=== PATIENT | male | born 1965 | race Caucasian/White ===

== ENCOUNTER 2016-09-11 14:31 | Emergency (ER) | payer BC ==
[~2016-09-11] VITALS: Ht 182.9 cm; Wt 98.8 kg
[2016-09-11 15:05] VITALS: TEMP 37.8
[2016-09-11] MEDS ORDERED: SODIUM CHLORIDE 0.9% 1000ML 1,000 ML IV STA (15:37)
[2016-09-11] MEDS ORDERED: LEVO125T72 PO (15:56)
[2016-09-11] MEDS ORDERED: PHEN1MIS16 PO (15:56)
[2016-09-11 16:02] VITALS: O2SAT 99; Ht 182.9 cm; Wt 98.8 kg
--- NOTE | 2016-09-11 16:03 | DIAGNOSTIC IMAGING REPORT ---
SINGLE VIEW CHEST CLINICAL HISTORY: Generalized weakness. FINDINGS: 2 AP, portable, upright chest radiographs are compared to study dated 1211. The cardiomediastinal silhouette is unremarkable. Tiny calcified granulomas are suspected. There is minimal bibasilar atelectasis. No airspace consolidation, large pleural effusion, or pneumothorax is seen. The bony thorax is grossly intact. Surgical clips are noted at the esophageal hiatus. IMPRESSION: No acute cardiopulmonary abnormality. Electronically signed by: Alvino Corley M.D. 09/11/2016 4:02 PM Dictated Date/Time: 09/11/2016 4:00 PM
[2016-09-11 16:07] LABS: BASO % 0.2 %; BASO ABS # 0.01 K/uL (0-0.2); COMPLETE YES; EOS % 0.2 %; HEMATOCRIT 46.7 % (42-52); IG% 0.2 %; LYMPH % 12.7 %; LYMPH ABS # 0.56 K/uL (1.2-3.4); MEAN CELL VOLUME 84.9 fL (80-100); MEAN CORPUSCULAR HEMOGLOBIN 30.5 pg (25-34); MEAN PLATELET VOLUME 10.2 fL (7.4-10.4); MONO % 12.3 %; NEUT % 74.4 %; PLATELET COUNT 157 K/uL (130-400)
[2016-09-11 16:17] LABS: PARTIAL THROMBOPLASTIN RATIO 1.2; PROTHROMBIN TIME (PATIENT) 10.8 SECONDS (9.0-12.0)
[2016-09-11] MEDS ORDERED: ONDANSETRON 8 MG/54 ML D5W IV STA (16:18)
[2016-09-11] MEDS ORDERED: ACETAMINOPHEN 500 MG TAB PO STA (16:18)
[2016-09-11 16:30] LABS: ALT/SGPT 41 U/L (12-78); AST/SGOT 19 U/L (15-37); BLOOD UREA NITROGEN 14 mg/dl (7-18); BUN/CREATININE RATIO 12.6 (10-20); CALCIUM 8.4 mg/dl (8.5-10.1); CARBON DIOXIDE 27 mmol/L (21-32); CHLORIDE 103 mmol/L (98-107); GLUCOSE 116 mg/dl (70-99); MAGNESIUM 2.1 mg/dl (1.8-2.4); POTASSIUM 3.7 mmol/L (3.5-5.1); SODIUM 138 mmol/L (136-145)
[2016-09-11 16:41] LABS: ALKALINE PHOSPHATASE 66 U/L (45-117)
[2016-09-11 17:28] LABS: URINE APPEARANCE CLEAR (CLEAR); URINE BILIRUBIN NEG (NEG); URINE COLOR YELLOW; URINE NITRITE NEG (NEG); URINE PH 5.5 (4.5-7.5); URINE SPECIFIC GRAVITY 1.013 (1.000-1.030); UROBILINOGEN NEG (NEG)
[2016-09-11 17:29] LABS: MANUAL MICROSCOPIC REQUIRED? NO; REVIEW REQ? NO
[2016-09-11 18:40] VITALS: BP 151/95; PULSE 87; O2SAT 95
[2016-09-11] MEDS ORDERED: ALBUTEROL HFA 8 GM INHALER INH ONE (18:45)
[2016-09-11] MEDS ORDERED: HYCODAN 60ML BOTTLE HOMEPACK PO ONE (18:45)
--- NOTE | 2016-09-12 00:04 | EMERGENCY ROOM VISIT NOTE ---
History Report prepared by Figueroa: José Luis Hilario Under the Supervision of: Dr. Rell Fair M.D. First contact with patient: 15:37 Chief Complaint: FLU LIKE SX Stated Complaint: FLU LIKE SX-BODY ACHES, FEVER, CHILLS, EXHAUSTED History of Present Illness The patient is a 51 year old male who presents to the Emergency Room with complaints of constant worsening flu symptoms for the past five days. The patient states that he has been having body aches, exhaustions, and he has been having fevers and chills. He states that he was only out of bed for 15 minutes four days ago due to the exhaustion. He states that three days ago he developed a cough the was unproductive, but he had chest pain due to the cough. He states that last night he vomited last night, and he has been nauseated, and he states that he had diarrhea once today. He states that he had some chicken noodle soup today, however it was difficult to eat. Pt denies LOC, headache, diaphoresis, visual changes, neck pain, breathing difficulties, abdominal pain, back pain, melena, hematochezia, urinary symptoms, numbness, weakness, lymphadenopathy, rash, or other complaints. Source of History: patient Onset: five days ago Position: other (global) Quality: other (flu like symptoms) Timing: constant, worsening Associated Symptoms: + chest pain, + chills, + cough, + diarrhea, + fevers, + nausea, + vomiting Note: Associated symptoms: exhaustion and body aches Review of Systems See HPI for pertinent positives and negatives. A total of ten systems were reviewed and were otherwise negative. Past Medical & Surgical Surgical Problems: (1) H/O abdominal surgery Social History Smoking Status: Never Smoker Marital Status: Housing Status: lives with family Occupation Status: employed Current/Historical Medications Scheduled Levothyroxine Sodium (Synthroid), 125 MCG PO DAILY Scheduled PRN Ljhhhjaqsriot-Jpvfgxmwom-Jnlbc (Vicks Dayquil/Nyquil Cold), 1 DOSE PO UD PRN for Cold Symptoms Allergies Coded Allergies: No Known Allergies (Verified , 04/11/04) Physical Exam Vital Signs Date Time Temp Pulse Resp B/P Pulse Ox O2 Delivery O2 Flow Rate FiO2 09/11/16 18:40 87 151/95 95 Room Air 09/11/16 17:45 86 18 148/96 97 Room Air 09/11/16 16:40 89 09/11/16 16:03 92 18 151/98 98 Room Air 09/11/16 16:02 99 Room Air 09/11/16 15:05 37.8 80 16 130/93 99 Room Air Physical Exam GENERAL: Awake, alert, mildly ill appearing, no distress HEAD: Normocephalic, atraumatic. No edema. EYES: Normal conjunctiva. Sclera non-icteric. NOSE: Mild congestion. OROPHARYNX: Lips, tongue, and mucosa unremarkable. No erythema or exudate. NECK: Supple. No nuchal rigidity. FROM. No adenopathy. Negative jolt accentuation test. RESPIRATORY: CTA bilaterally. No wheezes rales or rhonchi. CARDIAC: Borderline tachycardic rate, normal rhythm. ABDOMEN: Soft, non distended. No tenderness to palpation. NEURO: Normal sensorium. SKIN: No rash or jaundice noted Medical Decision & Procedures ER Provider Diagnostic Interpretation: X-ray: Per my interpretation, radiologist review. SINGLE VIEW CHEST CLINICAL HISTORY: Generalized weakness. FINDINGS: 2 AP, portable, upright chest radiographs are compared to study dated 1210. The cardiomediastinal silhouette is unremarkable. Tiny calcified granulomas are suspected. There is minimal bibasilar atelectasis. No airspace consolidation, large pleural effusion, or pneumothorax is seen. The bony thorax is grossly intact. Surgical clips are noted at the esophageal hiatus. IMPRESSION: No acute cardiopulmonary abnormality. Electronically signed by: Alvino Corley M.D. 09/11/2016 4:02 PM Dictated Date/Time: 09/11/2016 4:00 PM Laboratory Results 09/11/16 15:50 Red Blood Count 5.50, Mean Corpuscular Volume 84.9, Mean Corpuscular Hemoglobin 30.5, Mean Corpuscular Hemoglobin Concent 36.0, Mean Platelet Volume 10.2, Neutrophils (%) (Auto) 74.4, Lymphocytes (%) (Auto) 12.7, Monocytes (%) (Auto) 12.3, Eosinophils (%) (Auto) 0.2, Basophils (%) (Auto) 0.2, Neutrophils # (Auto ) 3.27, Lymphocytes # (Auto) 0.56, Monocytes # (Auto) 0.54, Eosinophils # (Auto ) 0.01, Basophils # (Auto) 0.01 09/11/16 15:50 Test 09/11/16 15:50 09/11/16 15:57 09/11/16 17:07 White Blood Count 4.40 K/uL (4.8-10.8) Red Blood Count 5.50 M/uL (4.7-6.1) Hemoglobin 16.8 g/dL (14.0-18.0) Hematocrit 46.7 % (42-52) Mean Corpuscular Volume 84.9 fL (80-100) Mean Corpuscular Hemoglobin 30.5 pg (25-34) Mean Corpuscular Hemoglobin Concent 36.0 g/dl (32-36) Platelet Count 157 K/uL (130-400) Mean Platelet Volume 10.2 fL (7.4-10.4) Neutrophils (%) (Auto) 74.4 % Lymphocytes (%) (Auto) 12.7 % Monocytes (%) (Auto) 12.3 % Eosinophils (%) (Auto) 0.2 % Basophils (%) (Auto) 0.2 % Neutrophils # (Auto) 3.27 K/uL (1.4-6.5) Lymphocytes # (Auto) 0.56 K/uL (1.2-3.4) Monocytes # (Auto) 0.54 K/uL (0.11-0.59) Eosinophils # (Auto) 0.01 K/uL (0-0.5) Basophils # (Auto) 0.01 K/uL (0-0.2) RDW Standard Deviation 38.2 fL (36.4-46.3) RDW Coefficient of Variation 12.3 % (11.5-14.5) Immature Granulocyte % (Auto) 0.2 % Immature Granulocyte # (Auto) 0.01 K/uL (0.00-0.02) Prothrombin Time 10.8 SECONDS (9.0-12.0) Prothromb Time International Ratio 1.0 (0.9-1.1) Activated Partial Thromboplast Time 31.2 SECONDS (21.0-31.0) Partial Thromboplastin Ratio 1.2 Anion Gap 8.0 mmol/L (3-11) Est Creatinine Clear Calc Drug Dose 96.7 ml/min Estimated GFR () 89.6 Estimated GFR (Non- 77.3 BUN/Creatinine Ratio 12.6 (10-20) Calcium Level 8.4 mg/dl (8.5-10.1) Magnesium Level 2.1 mg/dl (1.8-2.4) Total Bilirubin 0.4 mg/dl (0.2-1) Direct Bilirubin 0.1 mg/dl (0-0.2) Aspartate Amino Transf (AST/SGOT) 19 U/L (15-37) Alanine Aminotransferase (ALT/SGPT) 41 U/L (12-78) Alkaline Phosphatase 66 U/L (45-117) Troponin I < 0.015 ng/ml (0-0.045) Total Protein 7.4 gm/dl (6.4-8.2) Albumin 3.8 gm/dl (3.4-5.0) Lipase 405 U/L (73-393) Thyroid Stimulating Hormone (TSH) 2.350 uIu/ml (0.300-4.500) Influenza Type A Antigen Neg for Influ A (NEG) Influenza Type B Antigen POS for Influ B (NEG) Urine Color YELLOW Urine Appearance CLEAR (CLEAR) Urine pH 5.5 (4.5-7.5) Urine Specific [place] 1.013 (1.000-1.030) Urine Protein NEG (NEG) Urine Glucose (UA) NEG (NEG) Urine Ketones NEG (NEG) Urine Occult Blood NEG (NEG) Urine Nitrite NEG (NEG) Urine Bilirubin NEG (NEG) Urine Urobilinogen NEG (NEG) Urine Leukocyte Esterase NEG (NEG) Laboratory results reviewed by me Medications Administered Medications (Trade) Dose Ordered Sig/Jojo Route Start Time Stop Time Status Last Admin Dose Admin Sodium Chloride (Nss 1000ml) 1,000 ml @ 999 mls/hr Q1H1M STAT IV 09/11/16 15:37 09/11/16 16:37 DC 09/11/16 15:57 999 MLS/HR Ondansetron HCl (Zofran 8mg Iv) 8 mg NOW STAT IV 09/11/16 16:18 09/11/16 16:20 DC 09/11/16 16:38 8 MG Acetaminophen (Tylenol Tab) 1,000 mg NOW STAT PO 09/11/16 16:18 09/11/16 16:20 DC 09/11/16 16:38 1,000 MG Hydrocodone Bit/ Homatropine Methylb (Hycodan Elix Homepack 5/1.5MG/ 5ML) 1 homepack UD ONCE PO 09/11/16 18:45 09/11/16 18:46 DC 09/11/16 18:54 1 HOMEPACK Albuterol (Ventolin Hfa Inhaler) 2 puffs NOW ONCE INH 09/11/16 18:45 09/11/16 18:46 DC 09/11/16 18:54 2 PUFFS ECG Indication: other (flu-like symptoms) Rate (beats per minute): 72 Rhythm: normal sinus Findings: no acute ischemic change, no ectopy ED Course 1537: Sodium Chloride 1000 ml @ 999 mls/hr IV 1616: The patient was evaluated in room C9. A complete history and physical exam was performed. 1618: Tylenol Tab 1000mg PO, Zofran 8mg IV 1830: I reevaluated the patient, and she was feeling better. Discussed results and discharge instructions: He verbalized understanding and agreement. The patient is ready for discharge. 1845: Albuterol 2 puffs INH, Hycodan Elix Homepack 5/1.5mg/5ml 1 homepack PO Medical Decision Triage Nursing notes reviewed. The patient's presentation and history were concerning for flu like symptoms. Etiologies such as viral syndrome, otitis, pharyngitis, pneumonia, urinary tract infection, sepsis, bacteremia, meningitis, as well as others were entertained. The patient was evaluated. He had flulike symptoms. A chest x-ray was performed. No pneumonia found. The patient had an unremarkable CBC, chemistry panel, LFTs, and lipase. The patient flu test was positive. Unfortunately the patient's symptoms have been present for over 72 hours and Tamiflu would not be indicated. The patient was hydrated. He was given Tylenol and Zofran. He felt significantly better with this. I did discuss use of albuterol MDI as well as some Hycodan for symptom control. The patient was in agreement. He was given home packs of the albuterol and Hycodan. I discussed close outpatient follow-up. The patient was in agreement. I gave my usual and customary discussion regarding this issue. By the evaluation outlined above other emergent etiologies such as those listed in the differential, as well as others, were deemed relatively unlikely. The patient was informed about the findings as listed above. All questions were answered and he was pleased with the treatment. Return instructions were outlined and the patient was discharged in stable condition. The patient was referred to his PCP for follow-up for a recheck of the current condition. The chart was completed utilizing [employer] Speech voice recognition software. Grammatical errors, random word insertions, pronoun errors, and incomplete sentences are an occasional consequence of this system due to software limitations, ambient noise, and hardware issues. Any formal questions or concerns about the content, text, or information contained within the body of this dictation should be directly addressed to the physician for clarification. Impression Primary Impression: Influenza Scribe Attestation The scribe's documentation has been prepared under my direction and personally reviewed by me in its entirety. I confirm that the note above accurately reflects all work, treatment, procedures, and medical decision making performed by me. Departure Information Dispostion Home / Self-Care Referrals Pablo Hendricks D.O. Pulmonary (PCP) Forms HOME CARE DOCUMENTATION FORM, IMPORTANT VISIT INFORMATION, Work Instructions Patient Instructions [facility] Additional Instructions Diagnosis: 1. Influenza Acetaminophen(Tylenol) may be used for fever or pain. Use 1000mg every six hours as needed. Avoid using more than 4000mg in a 24 hour period. (AND/OR) Ibuprofen(Motrin, Advil) may be used for fever or pain. Use 600mg every six hours as needed. Take with food. Avoid using more than 2400mg in a 24 hour period. Do not use 2400mg per day for more than three consecutive days without physician direction. Prolonged inappropriate use can lead to stomach upset or ulcers. Albuterol Inhaler: Take 2 puffs four times daily for seven days, then as needed. Hycodan cough syrup: use one teaspoon every six hours only as needed for severe cough. It is best for use at night since it will cause sedation. This is a narcotic medication. Avoid alcohol, operating machinery or dangerous equipment, working on ladders or roofs, DRIVING, or situations where being under the influence may be dangerous. It is recommended to use an over-the- counter stool softener such as Colace, 100mg twice daily while taking this medication to avoid constipation. Rest and drink plenty of fluids. Controlling your fever with Tylenol and Ibuprofen as above will make you feel better. Wash your hands after nose blowing, sneezing, or coughing. Most germs are spread through contact, therefore improper hygiene may result in your close contacts and loved ones becoming ill just like you. Return to the ER for severe headache, neck stiffness, chest pain, difficulty breathing, fevers, vomiting, worsening of your condition, or as needed. Follow up with your primary physician this week for a recheck of your current condition.
[2016-12-16] MEDS ORDERED: LEVO112T4 PO (10:38)
== END 2016-09-11 19:02 | disposition home or self-care (01) ==
LOC: C.EDB 14:33 → C.EDC 19:02
DX: J10.1 Influenza due to other identified influenza virus with other respiratory manifestations (principal); Z79.899 Other long term (current) drug therapy

== ENCOUNTER → 2016-12-24 | Day surgery (SDC) | payer BC ==
[2016-12-16 10:38] VITALS: BMI 28.0
[~2016-12-24] VITALS: Ht 182.9 cm; Wt 95.5 kg
[~2016-12-24] MED LIST: LEVO112T4 PO; LIDOCAINE HCL 2% 2 ML VIAL (20MG/ML) ONE; PROPOFOL IV EMULSION 10 MG/ML 20 ML VIAL IV ONE; SODIUM CHLORIDE 0.9% 500ML 500 ML IV ONE
[2016-12-24 08:38] VITALS: Ht 182.9 cm; Wt 95.5 kg
--- NOTE | 2016-12-24 09:06 | Endo History and Physical ---
History & Physical Date of Service: Dec 24, 2016. Chief Complaint: SCREENING FOR COLON CA Referring Physician: DR. ZEFERINO WHITT History of Present Illness 51 yo CM who presents for screening colonoscopy. Past Surgical History Hx Cardiac Surgery: No Hx Internal Defibrillator: No Hx Pacemaker: No Hx Abdominal Surgery: Yes (ANNY FUNDOPLICATION/COLON SX? AT AGE 2) Hx of Implantable Prosthesis: No Hx Post-Op Nausea and Vomiting: No Hx Cancer Surgery: No Hx Thoracic Surgery: No Hx Orthopedic: No Hx Urinary Tract Surgery: No Family History None Social History Smoking Status: Never Smoker Hx Substance Use: No Hx Alcohol Use: No Allergies Coded Allergies: No Known Allergies (Verified , 12/16/16) Current Medications Reported Home Medications Medications Dose Route/Sig Max Daily Dose Days Date Category Levothyroxine Sodium 112 Mcg Tab 1 Tab PO HS 90 12/16/16 Reported Vital Signs Weight (Kilograms): 95.45 Height (Feet): 6 Height (Inches): 0 Date Time Temp Pulse Resp B/P (MAP) Pulse Ox O2 Delivery O2 Flow Rate FiO2 12/24/16 08:48 36.8 75 16 131/97 (108) 96 Room Air Physical Exam General Appearance: WD/WN, no apparent distress Respiratory/Chest: Auscultation: breath sounds normal Cardiovascular: Heart Auscultation: RRR Abdomen: Bowel Sounds: normal Inspection & Palpation: soft, non-distended, no tenderness, guarding & rebound Assessment and Plan Assessment: 51 yo CM who presents for screening colonoscopy. Plan: Proceed with colonoscopy.
--- NOTE | 2016-12-24 09:47 | Discharge Instructions ---
Endoscopy Patient Instructions Date / Procedure(s) Performed Dec 24, 2016. Colonoscopy Allergy Information Coded Allergies: No Known Allergies (Verified , 12/16/16) Discharge Date / Findings Dec 24, 2016. Diverticulosis Internal hemorrhoids Medication Instructions OK to resume all medications today as prescribed Reported Home Medications Medications Dose Route/Sig Max Daily Dose Days Date Category Levothyroxine Sodium 112 Mcg Tab 1 Tab PO HS 90 12/16/16 Reported Provider Instructions Activity Restrictions - No exercising or heavy lifting for 24 hours. - Do not drink alcohol the day of the procedure. - Do not drive a car or operate machinery until the day after the procedure. - Do not make any important decisions or sign important papers in 24 hours after the procedure. Following Day: - Return to full activity which may include returning to work/school. Diet Start your diet with liquids and light foods (jello, soup, juice, toast). Then eat your usual diet if not nauseated. Treatment For Common After Affects For mild abdominal pain, bloating, or excessive gas: - Rest - Eat lightly - Lie on right side Follow-Up Information Follow-up with DR. ZEFERINO WHITT as scheduled Anesthesia Information What You Should Know You have had a procedure that required some medicine to reduce anxiety and discomfort. This treatment is called moderate sedation. After receiving the treatment, you may be sleepy, but you will be able to breathe on your own. The effects of the treatment may last for several hours. Follow these instructions along with Activity/Diet recommendations noted above: * Do NOT do anything where dizziness or clumsiness would be dangerous. * Rest quietly at home today, then you can be up and about tomorrow. * Have a responsible person stay with you the rest of today. * You may have had an I.V. today. If so, you may take the dressing off later today. Recommendations Call your doctor if: * Trouble breathing * Continuous vomiting for more than 24 hours * Temperature above 101 degrees * Severe abdominal pain or bloating * Pain not relieved by pain medicine ordered * There is increased drainage or redness from any incision * A large amount of rectal bleeding greater than 2-3 tablespoons. (If you had a polyp/s removed or have hemorrhoids, a small amount of blood - from the rectum is to be expected.) * You have any unanswered questions or concerns. IN THE EVENT OF A SERIOUS EMERGENCY, GO TO THE NEAREST EMERGENCY ROOM Your discharge instructions were prepared by provider Rell Smiley. Patient Instructions Signature Page Mateusz Carrillo Patient (or Guardian) Signature/Date: I have read and understand the instructions given to me by my caregivers. Caregiver/RN/Doctor Signature/Date: The above-named patient and/or guardian has received patient instructions on this date. + Original Patient Signature Page (only) stays with chart. Please make copy for patient.
--- NOTE | 2016-12-24 09:55 | GI REPORT ---
Procedure Date: 12/24/2016 8:41 AM Procedure: Colonoscopy Indications: Screening for colorectal malignant neoplasm Medicines: Monitored Anesthesia Care Complications: No immediate complications. Estimated Blood Loss: Estimated blood loss: none. Procedure: Pre-Anesthesia Assessment: - Prior to the procedure, a History and Physical was performed, and patient medications and allergies were reviewed. The patient's tolerance of previous anesthesia was also reviewed. The risks and benefits of the procedure and the sedation options and risks were discussed with the patient. All questions were answered, and informed consent was obtained. Prior Anticoagulants: The patient has taken no previous anticoagulant or antiplatelet agents. ASA Grade Assessment: II - A patient with mild systemic disease. After reviewing the risks and benefits, the patient was deemed in satisfactory condition to undergo the procedure. After I obtained informed consent, the scope was passed under direct vision. Throughout the procedure, the patient's blood pressure, pulse, and oxygen saturations were monitored continuously. The scope was introduced through the anus and advanced to the terminal ileum. The colonoscopy was performed without difficulty. The patient tolerated the procedure well. The quality of the bowel preparation was good. The terminal ileum, ileocecal valve, appendiceal orifice, and rectum were photographed. Findings: Multiple small-mouthed diverticula were found in the sigmoid colon. Non-bleeding internal hemorrhoids were found during retroflexion. The hemorrhoids were small. Impression: - Diverticulosis in the sigmoid colon. - Non-bleeding internal hemorrhoids. - No specimens collected. Recommendation: - Resume previous diet. - Continue present medications. - Repeat colonoscopy in 10 years for surveillance. - Return to primary care physician as previously scheduled. Rell Smiley, 12/24/2016 9:54:37 AM This report has been signed electronically. Note Initiated On: 12/24/2016 8:41 AM I attest to the content of the Intraoperative Record and orders documented therein, exceptions below
--- NOTE | 2016-12-24 10:13 | Anesthesiology Progress Note ---
Anesthesia Post Op Note Date & Time Dec 24, 2016 at 10:13 Vital Signs Pain Intensity: 0 Vital Signs Past 12 Hours Date Time Temp Pulse Resp B/P (MAP) Pulse Ox O2 Delivery O2 Flow Rate FiO2 12/24/16 09:47 74 16 126/91 (103) 97 Room Air 12/24/16 09:37 72 18 129/81 (97) 98 Room Air 12/24/16 08:48 36.8 75 16 131/97 (108) 96 Room Air Notes Mental Status: alert / awake / arousable, participated in evaluation Pt Amnestic to Procedure: Yes Nausea / Vomiting: adequately controlled Pain: adequately controlled Airway Patency, RR, SpO2: stable & adequate BP & HR: stable & adequate Hydration State: stable & adequate Anesthetic Complications: no major complications apparent
[2016-12-24 10:17] VITALS: BP 137/95; PULSE 74; O2SAT 98
== END | disposition home or self-care (01) ==
LOC: C.GI 08:29
PROVIDERS: ATTEND Internal Medicine
DX: Z12.11 Encounter for screening for malignant neoplasm of colon (principal); K57.30 Diverticulosis of large intestine without perforation or abscess without bleeding; K64.8 Other hemorrhoids; Z68.28 Body mass index [BMI] 28.0-28.9, adult; Z90.89 Acquired absence of other organs